=== PATIENT | female | born 1990 | race Caucasian/White ===

== ENCOUNTER 2018-07-21 12:45 | Emergency (ER) | payer MEDICAID ==
[~2018-07-21] VITALS: Ht 160 cm; Wt 124.3 kg
[2018-07-21 13:01] VITALS: BP 123/70
--- NOTE | 2018-07-21 13:22 | NUR ---
C/O LT LOWER LEG PAIN SINCE TWO DAYS AGO AFTER SHAVING. DENIES N/V/D; SKIN IS PINK/WARM/DRY; AAOX4 WITH EVEN AND STEADY GAIT; LUNGS CLEAR BL; HR EVEN AND REGULAR; PT DENIES ANY FEVER, CP, SOB, OR COUGH AT THIS TIME; PATIENT STATES PAIN OF 10/10 AT THIS TIME; VSS; PATIENT POSITIONED FOR COMFORT; HOB ELEVATED; BEDRAILS UP X2; BED DOWN. ER MD MADE AWARE OF PT STATUS.
[2018-07-21 13:38] VITALS: BP 123/70
--- NOTE | 2018-07-21 13:38 | NUR ---
Patient discharged with v/s stable. Written and verbal after care instructions given and explained. Patient alert, oriented and verbalized understanding of instructions. Ambulatory with steady gait. All questions addressed prior to discharge. ID band removed. Patient advised to follow up with PMD. Rx of PREDINISONE, KEFLEX, BACTRIM AND MOTRIN given. Patient educated on indication of medication including possible reaction and side effects. Opportunity to ask questions provided and answered.
== END 2018-07-21 13:37 | disposition home or self-care (01) ==
LOC: MED 12:45
DX: L03.116 Cellulitis of left lower limb (principal)
CPT/HCPCS: 99283

== ENCOUNTER 2019-03-08 20:07 | Emergency (ER) | payer MEDICAID, OTHER ==
[~2019-03-08] VITALS: Ht 160 cm; Wt 122.9 kg
--- NOTE | 2019-03-08 20:07 | NUR ---
PT DEDE ALS. TAKEN TO BED 8
[2019-03-08 20:17] VITALS: BP 149/82
--- NOTE | 2019-03-08 20:22 | NUR ---
Dr. Pitts evaluating patient at bedside.
--- NOTE | 2019-03-08 20:26 | NUR ---
PT BIB AMBULANCE TO THE ED WITH THE CHIEF C/O ANXIETY. PT HAS BEEN EXPERIENCING ANXIETY SINCE , GETTING WORSE. [facility]ER[facility], WAS PRESCRIBED ZOLOFT. PT SACRED OF ZOLOFT'S SIDE -EFFECTS AND IS NOT TAKING MEDICINE. DENIES N/V/D. DENIES FEVER. DENIES PAIN. VSS. DENIES PAIN AT THIS TIME.
--- NOTE | 2019-03-08 20:38 | NUR ---
LAB AT THE BEDSIDE.
[2019-03-08 20:54] LABS: BASOPHILS # (AUTO) 0.6 K/uL (0.00-0.22); EOSINOPHILS # (AUTO) 0.6 K/uL (0-0.4); EOSINOPHILS % (AUTO) 4.5 % (0.0-4.0); HEMATOCRIT 39.8 % (36-48); HEMOGLOBIN 13.1 g/dL (12.0-16.0); LYMPHOCYTES # (AUTO) 1.1 K/uL (2.5-16.5); LYMPHOCYTES % (AUTO) 8.1 % (20.5-51.1); MEAN CORPUSCULAR HEMOGLOBIN 28 pg (27-31); MEAN CORPUSCULAR HGB CONC 33 g/dL (33-37); MONOCYTES # (AUTO) 0.6 K/uL (0.8-1.0); MONOCYTES % (AUTO) 4.4 % (1.7-9.3); PLATELET COUNT (AUTO) 272 K/uL (140-450); RED BLOOD CELL COUNT(AUTO) 4.74 MIL/uL (4.20-5.40); RED CELL DISTRIBUTION WIDTH 14.1 % (11.6-13.7); WHITE BLOOD COUNT (AUTO) 13.9 K/uL (4.8-10.8)
[2019-03-08 21:02] LABS: ANION GAP 14.4 (8-16); CARBON DIOXIDE 24.3 mmol/L (21-32); CREATININE 0.8 mg/dL (0.6-1.3); POTASSIUM 3.7 mmol/L (3.5-5.1)
[2019-03-08 21:16] LABS: ALBUMIN 3.8 g/dL (3.4-5.0); FREE T4 (FREE THYROXINE) 1.34 ng/dL (0.76-1.46); THYROID STIMULATING HORMONE 1.41 uIU/mL (0.34-3.74); TOTAL BILIRUBIN 0.4 mg/dL (0.0-1.0)
--- NOTE | 2019-03-08 21:31 | NUR ---
PT RE-EVALUATED BY BEE REYNOLDS.
[2019-03-08 21:38] VITALS: BP 133/59
== END 2019-03-08 21:36 | disposition home or self-care (01) ==
LOC: MED 20:07
DX: F41.9 Anxiety disorder, unspecified (principal); J45.909 Unspecified asthma, uncomplicated; Z72.820 Sleep deprivation
CPT/HCPCS: 36415; 80053; 81002; 81025; 84439; 84443; 85025; 99283